=== PATIENT | female | born 1970 | race Caucasian/White ===

== ENCOUNTER 2022-09-22 09:38 | Inpatient (IN) | payer OTHER ==
[2022-09-26 12:21] VITALS: BMI 32.5
[2022-09-27] MEDS ORDERED: fentaNYL PF 100 MCG/2 ML SYRINGE ONE ×2 (12:10→17:50)
[2022-09-27] MEDS ORDERED: Neomycin-Polymyxin 1 ML AMP ONE (12:26)
[2022-09-27] MEDS ORDERED: Thrombin 5000 UNITS/5 ML VIAL ONE (12:26)
[2022-09-27] MEDS ORDERED: Sodium Chloride 0.9% 100 ML ONE (13:04)
[2022-09-27] MEDS ORDERED: CEFAZOLIN 2 GM VIAL ONE (13:04)
[2022-09-27] MEDS ORDERED: Succinylcholine Chloride 100 MG/5 ML SYRINGE FS ONE (13:42)
[2022-09-27] MEDS ORDERED: Dexamethasone 20 MG/5 ML VIAL ONE (13:42)
[2022-09-27] MEDS ORDERED: PROPOFOL 200 MG/20 ML VIAL ONE (13:42)
[2022-09-27] MEDS ORDERED: ePHEDrine 50 MG/ML VIAL ONE (13:42)
[2022-09-27] MEDS ORDERED: PHENYLEPHRINE-NS 100 MCG/ML 10 ML SYRINGE ONE (13:42)
[2022-09-27] MEDS ORDERED: Rocuronium Bromide 10 MG/ML (10ML VIAL) ONE (13:42)
[2022-09-27] MEDS ORDERED: Vecuronium 10 MG VIAL ONE (13:42)
[2022-09-27] MEDS ORDERED: Lidocaine 1% PF 5 ML VIAL ONE (13:42)
[2022-09-27] MEDS ORDERED: SUGAMMADEX SODIUM 200 MG/2 ML VIAL ONE (14:51)
[2022-09-27] MEDS ORDERED: Phenylephrine 10 MG/ML VIAL ONE (15:52)
[2022-09-27] MEDS ORDERED: HYDROcodone/Acetaminophen 7.5/325 mg Tablet PO PRN (17:39)
[2022-09-27] MEDS ORDERED: HYDROcodone/Acetaminophen 10/325 mg Tablet PO PRN (17:39)
[2022-09-27] MEDS ORDERED: Ondansetron PF 4 MG/2 ML Vial IVP PRN (17:39)
[2022-09-27] MEDS ORDERED: Prochlorperazine 10 MG/2 ML VIAL IM PRN (17:39)
[2022-09-27] MEDS ORDERED: Cyclobenzaprine 10 MG TAB PO PRN (17:39)
[2022-09-27] MEDS ORDERED: Morphine 2 MG/ML VIAL SLOW IVP PRN (17:39)
[2022-09-27] MEDS ORDERED: Acetaminophen/Codeine 30-300mg Tablet PO PRN (17:39)
[2022-09-27] MEDS ORDERED: Sodium Chloride 0.9% 1,000 ML IV SCH (17:45)
[2022-09-27] MEDS ORDERED: PACU-Morphine 4MG/ML VIAL SLOW IVP PRN (17:53)
[2022-09-27] MEDS ORDERED: Promethazine HCl 25 MG/ML VIAL IM PRN (17:53)
[2022-09-27] MEDS ORDERED: Ondansetron HCl/PF 4 MG/2 ML Vial IVP PRN (17:53)
[2022-09-27] MEDS ORDERED: FENTANYL 50 MCG/ML 1 ML VIAL ONE ×3 (18:12→18:49)
[2022-09-27] MEDS ORDERED: HYDROcodone/Acetaminophen 5/325 mg Tablet ONE (19:29)
== END 2022-09-27 19:55 | disposition home or self-care (01) | DRG 472 ==
LOC: SURG A 09-27 10:13 → EDSTATUS 09-27 18:30
PROVIDERS: ADMIT Neurological Surgery; ATTEND Neurological Surgery
PROC: 0RG20A0 Fusion of 2 or more Cervical Vertebral Joints with Interbody Fusion Device, Anterior Approach, Anterior Column, Open Approach (ICD-10-PCS; principal; 2022-09-27)
PROC: 0RB30ZZ Excision of Cervical Vertebral Disc, Open Approach (ICD-10-PCS; 2022-09-27)
PROC: 00NW0ZZ Release Cervical Spinal Cord, Open Approach (ICD-10-PCS; 2022-09-27)
PROC: 0PP304Z Removal of Internal Fixation Device from Cervical Vertebra, Open Approach (ICD-10-PCS; 2022-09-27)
PROC: 4A11X4G Monitoring of Peripheral Nervous Electrical Activity, Intraoperative, External Approach (ICD-10-PCS; 2022-09-27)
PROC: 01N10ZZ Release Cervical Nerve, Open Approach (ICD-10-PCS; 2022-09-27)
DX: M50.121 Cervical disc disorder at C4-C5 level with radiculopathy (principal); M50.021 Cervical disc disorder at C4-C5 level with myelopathy; G89.29 Other chronic pain; M19.90 Unspecified osteoarthritis, unspecified site; M47.816 Spondylosis without myelopathy or radiculopathy, lumbar region; M48.061 Spinal stenosis, lumbar region without neurogenic claudication; G56.03 Carpal tunnel syndrome, bilateral upper limbs; M25.551 Pain in right hip; M70.61 Trochanteric bursitis, right hip; Z90.49 Acquired absence of other specified parts of digestive tract; Z87.891 Personal history of nicotine dependence; Z79.899 Other long term (current) drug therapy
CPT/HCPCS: C1713; J2370; J3010; J3490

== ENCOUNTER 2022-09-22 12:50 | Outpatient (CLI) | payer OTHER ==
[2022-09-22 14:37] LABS: PTT 31.6 sec (22.0-33.0); Prothrombin Time 10.6 sec (9.5-12.1)
[2022-09-22 14:40] LABS: Anion Gap 17 mmol/L (10-20); BUN (Urea Nitrogen) 14 mg/dL (9.8-20.1); Calc. Creatinine Clearance 0 mL/min (70-130); Carbon Dioxide 24 mmol/L (22-29); Chloride 102 mmol/L (98-107); Estimated GFR 93; Glucose 79 mg/dL (70-105); Potassium 4.2 mmol/L (3.5-5.1); Sodium 139 mmol/L (136-145)
[2022-09-22 14:41] LABS: Hemoglobin 13.6 g/dL (12.0-15.5); Mean Corpuscular HGB CONC 32.6 g/dL (32.0-36.0); Mean Corpuscular Hemoglobin 29.2 pg (27.0-33.0); Mean Corpuscular Volume 89.7 fl (81.6-98.3); Mean Platelet Volume 8.9 fl (7.4-10.4); Platelet Count 235 10x3/uL (150-450); RBC Distribution Width 12.7 % (11.5-14.5); Red Blood Cell (RBC) Count 4.65 10x6/uL (3.90-5.03); White Blood Cell (WBC) Count 8.1 10x3/uL (3.5-10.5)
== END 2022-09-22 12:51 | disposition home or self-care (01) ==
LOC: LABBT 12:50
PROVIDERS: ATTEND Neurological Surgery
DX: Z01.812 Encounter for preprocedural laboratory examination (principal); G95.9 Disease of spinal cord, unspecified
CPT/HCPCS: 80048; 85027; 85610; 85730